=== PATIENT | female | born 1970 | race Caucasian/White ===

== ENCOUNTER 2019-10-30 16:33 | Outpatient (CLI) | payer OTHER | END 2019-10-30 23:59 | disposition home or self-care (01) | LOC: CFH 16:33 | PROVIDERS: ATTEND Nurse Practitioner Family | DX: M48.061 Spinal stenosis, lumbar region without neurogenic claudication (principal); M47.816 Spondylosis without myelopathy or radiculopathy, lumbar region; M46.06 Spinal enthesopathy, lumbar region; M25.552 Pain in left hip; M54.5 Low back pain; M25.561 Pain in right knee; M25.562 Pain in left knee | CPT/HCPCS: 72110; 73565 ==